=== PATIENT | male | born 1965 | race Asian ===

== ENCOUNTER 2019-03-12 20:28 | Emergency (ER) | payer MEDICAID ==
[~2019-03-12] VITALS: Ht 167.6 cm; Wt 71.7 kg
--- NOTE | 2019-03-12 20:48 | NUR ---
BIBS FROM HOME TO ER BED 10. AAOX4. NO RESP DISTRESS NOTED. AMBULATORY. C/O COLD, COUGH AND SORETHROAT X 1 WEEK. PT REPORTS THAT HE HAS BEEN HAVING PRODUCTIVE COUGH AND SORETHROAT WHICH IS PAIN FUL WHEN COUGHING. PT REPORTS TAKING NYQUIL AND DAYQUIL. MD AT BEDSIDE FOR EVAL. AWAITING ORDERS
--- NOTE | 2019-03-12 20:52 | NUR ---
XRAY AT BEDSIDE
--- NOTE | 2019-03-12 21:54 | NUR ---
Patient discharged to home in stable condition. Written and verbal after care instructions given. Patient verbalizes understanding of instruction. Pt ambulatory with a steady gait
[2019-03-12 21:55] VITALS: BP 138/88
== END 2019-03-12 21:55 | disposition home or self-care (01) ==
LOC: ER 20:33
DX: J20.9 Acute bronchitis, unspecified (principal); E11.9 Type 2 diabetes mellitus without complications; I10 Essential (primary) hypertension; E78.00 Pure hypercholesterolemia, unspecified; Z88.1 Allergy status to other antibiotic agents; Z60.2 Problems related to living alone
CPT/HCPCS: 71045-TC

== ENCOUNTER 2023-08-03 11:52 | Emergency (ER) | payer MEDICAID, OTHER ==
[~2023-08-03] VITALS: Ht 167.6 cm; Wt 76.9 kg
[2023-08-03] MEDS ORDERED: IBUP-1957 PO (12:43)
[2023-08-03 12:48] VITALS: BP 128/78; TEMP 97.6; O2SAT 98
== END 2023-08-03 12:48 | disposition home or self-care (01) ==
LOC: ER 11:59
DX: S83.8X2A Sprain of other specified parts of left knee, initial encounter (principal); E78.00 Pure hypercholesterolemia, unspecified; I10 Essential (primary) hypertension; E11.9 Type 2 diabetes mellitus without complications; Z79.899 Other long term (current) drug therapy; Z60.2 Problems related to living alone; Z88.1 Allergy status to other antibiotic agents; X58.XXXA Exposure to other specified factors, initial encounter; Y93.89 Activity, other specified; Y92.89 Other specified places as the place of occurrence of the external cause; Y99.8 Other external cause status
CPT/HCPCS: 73564-TC